=== PATIENT | male | born 1990 | race African-American/Black ===

== ENCOUNTER 2017-11-17 04:26 | Emergency (ER) | payer OTHER ==
[~2017-11-17] VITALS: Ht 167.6 cm; Wt 106.5 kg
[2017-11-17] MEDS ORDERED: MOTRIN800 MG PO (06:27)
[2017-11-17] MEDS ORDERED: TAMIFLU75 MG PO (06:27)
[2017-11-17 06:39] VITALS: BP 148/96
== END 2017-11-17 06:40 | disposition home or self-care (01) ==
LOC: EME 04:26
PROVIDERS: Emergency Medicine
DX: J11.1 Influenza due to unidentified influenza virus with other respiratory manifestations (principal)
CPT/HCPCS: 71046; 80048; 85027; 87502; 99281; 99284